=== PATIENT | male | born 1985 | race Caucasian/White ===

== ENCOUNTER 2023-09-05 20:31 | Emergency (ER) | payer OTHER ==
[2023-09-05] MEDS: Ibuprofen 600 MG Tab PO ONE (21:00)
== END 2023-09-05 21:41 | disposition home or self-care (01) ==
LOC: MW.ED 20:31
DX: S62.522A Displaced fracture of distal phalanx of left thumb, initial encounter for closed fracture (principal); W23.0XXA Caught, crushed, jammed, or pinched between moving objects, initial encounter; Y93.89 Activity, other specified
CPT/HCPCS: 73130; 99283; A9270